=== PATIENT | male | born 1980 | race Caucasian/White ===

== ENCOUNTER 2024-01-06 10:31 | Outpatient (REF) | payer MEDICARE, MEDICAID, SELFPAY | END 2024-01-06 10:32 | disposition home or self-care (01) | LOC: HO.SH 10:31 | PROVIDERS: Visit Provider Physician Assistant | DX: Z01.118 Encounter for examination of ears and hearing with other abnormal findings (principal); H90.3 Sensorineural hearing loss, bilateral | CPT/HCPCS: 92553; 92555; 92567 ==

== ENCOUNTER 2024-02-11 14:34 | Outpatient (REF) | payer MEDICARE, MEDICAID, SELFPAY ==
--- NOTE | 2024-02-11 16:35 | MHC.AU.HA1 ---
Hearing Aid Evaluation Date of Visit: 02/11/24 Historical Information: Description of Hearing: Mild to severe sensorineural hearing loss, bilateral. Summary: Jose Alfredo is here with his sister. His wax was removed and medical clearance sent from ENT. Reviewed amplification options. Recommended mini BTE rechargeable with custom earmolds. Impressions taken without incidence Au. Hearing Aid Prescription: Based on the individual?s shared listening needs, communication environments, dexterity, desire for connectivity, and personal preferences, the following prescription for amplification has been made: Right ear: Make, Model, Color: Oticon Real 2 mini BTE R, chroma beige Battery Size: Rechargeable Type of Earmold/Dome/CShell/SlimTip: acrylic half shell Left ear: Left ear prescription to be same as Right Hearing Aid above: Make, Model, Color: Oticon Real 2 mini BTE R, chroma beige Battery Size: Rechargeable Type of Earmold/Dome/CShell/SlimTip: acrylic half shell Plan of Care: Patient wishes to purchase hearing aids as prescribed Action Taken/Action Needed: Earmold Impressions Taken Hearing Instrument Fitting to be scheduled when materials arrive Primary Diagnosis: H90.3 Bilateral Sensorineural Hearing Loss Signature: Provider: Heidy Mims, CCC-A
== END 2024-02-11 14:35 | disposition home or self-care (01) ==
LOC: HO.HAP 14:34
PROVIDERS: Visit Provider Otolaryngology
DX: Z46.1 Encounter for fitting and adjustment of hearing aid (principal); H90.3 Sensorineural hearing loss, bilateral
CPT/HCPCS: 92591; V5275

== ENCOUNTER 2024-03-08 11:05 | Outpatient (REF) | payer MEDICARE, MEDICAID, SELFPAY | END 2024-03-08 11:06 | disposition home or self-care (01) | LOC: HO.HAP 11:05 | PROVIDERS: PCP Physician Assistant; Visit Provider Otolaryngology | DX: Z46.1 Encounter for fitting and adjustment of hearing aid (principal); H90.3 Sensorineural hearing loss, bilateral | CPT/HCPCS: V5011; V5020; V5160; V5261; V5264 ==

== ENCOUNTER 2025-04-29 12:51 | Outpatient (REF) | payer MEDICARE, MEDICAID, SELFPAY ==
--- OUTSIDE RECORDS SUMMARY | 2025-04-29 13:27 | XMS_ITS ---
Author Name [facility] Organization Unknown History of Medication Use Medication Directions Dispensed Refills Start Date End Date Stat us sertraline (ZOLOFT) 100 MG tablet Take 2 tablets (200 mg total) by mouth every morning. ALONG WITH 50 MG TABLET FOR TOTAL DOSE OF 250 MG 09/29/2023 active sertraline (ZOLOFT) 50 MG tablet Take 1 tablet (50 mg total) by mouth every morning. ALONG WITH 200 MG FOR TOTAL DOSE OF 250 MG 08/19/2023 active Problems Problem Status Onset Date Problem Type Date of Resoluti on Source Symptomatic bradycardia active 2023-11-10 ProblemAct [facility] Syncope and collapse active 2023-11-10 ProblemAct [facility] Down syndrome active 2023-11-10 ProblemAct [facility] T Encounters Encounter Type Encounter Reason Primary Diagnosis Location Date Ambulatory Bradycardia, unspecified Bradycardia, unspecified [facility] 12/02/2023 Inpatient Other specified heart block Other specified heart block [facility] 11/10/2023 Care Team Organization Name Specialty Phone Email Start Date End Da te [facility] 11/10/2023 01/19/2025 [facility] CECILIA HUITRON Primary Care 11/10/202311/12 [facility]wite 11/10/2023 11/10/2023
--- NOTE | 2025-04-29 14:09 | MHC.AU.HA3 ---
Hearing Instrument Follow-Up- Binaural Date of Visit: 04/29/25 Right Ear: Make, Model, Color, Serial Number: Oticon Real 2 miniBTE-R SN: [id number] Color: Chroma Beige [facility] Repair Warranty: 03/13/2027 [facility] Loss and Damage Warranty: 03/13/2027 [facility] Service Plan: 03/08/2025 Battery Size: Rechargeable Earmold/Dome/CShell/SlimTip:John Acrylic Half Shell SN: [id number] Isabel: 05/27/2024 Left Ear: Make, Model, Color, Serial Number: Oticon Real 2 miniBTE-R SN: [id number] Color: Chroma Beige [facility] Repair Warranty: 03/13/2027 [facility] Loss and Damage Warranty: 03/13/2027 [facility] Service Plan: 03/08/2025 Battery Size: Rechargeable Earmold/Dome/CShell/SlimTip: John Acrylic Half Shell SN: [id number] Isabel: 05/27/2024 Follow-Up Summary: R FLOYD d/o with tube slipped out. Cleaned aid (1), cleaned earmold (1), [place]tubed [place]armold (1[place] [id number] 3 units. Listening check positive. Recommendations: Recommendations: Hearing instrument follow-up or maintenance as needed. Diagnosis Code(s): Primary Diagnosis: H90.3 Bilateral Sensorineural Hearing Loss Signature: Provider: Heidy Mims, CCC-A
== END 2025-04-29 12:52 | disposition home or self-care (01) ==
LOC: HO.HAP 12:51
PROVIDERS: Visit Provider Physician Assistant
DX: Z13.89 Encounter for screening for other disorder (principal)

== ENCOUNTER 2025-05-02 15:06 | Outpatient (REF) | payer MEDICARE, MEDICAID, SELFPAY ==
--- OUTSIDE RECORDS SUMMARY | 2025-05-02 15:31 | XMS_ITS | Clinical Summary ---
Author Organization [facility] Address [address] [place] [address] Care Team Providers Care Branch Lending Officer Name Role Phone Marcia Sánchez Primary Care Provider [phone] Allergies No known active allergies Medications sertraline (ZOLOFT) 100 MG tablet Take 2 tablets (200 mg total) by mouth every morning. ALONG WITH 50 MG TABLET FOR TOTAL DOSE OF 250 MG 09/29/2023 Active sertraline (ZOLOFT) 50 MG tablet Take 1 tablet (50 mg total) by mouth every morning. ALONG WITH 200 MG FOR TOTAL DOSE OF 250 MG 08/19/2023 Active metoCLOPRAMIDE (REGLAN) 5 MG tabletIndicatio ns:Sinus pause Take 1 tablet (5 mg total) by mouth every 4 (four) hours as needed for nausea. 42 tablet 11/12/2023 Active Active Problems Problem Noted Date Diagnosed Date Syncope and collapse 11/10/2023 Down syndrome 11/10/2023 Symptomatic bradycardia 11/10/2023 Social History Tobacco Use Types Packs/Day Years Used Date Smoking Tobacco: Never Assessed [facility] Utilities Answer Date Recorded In the past 12 months has e electric, gas, oil, or water company threatened to shut off services in your home? No 11/12/2023 Overall Financial Resource Strain (CARDIA) Answe r Date Recorded How hard is it for you to pa y for the very basics like food, housing, medical care, and heating? Not hard at all 11/12/2023 Hunger Vital Sign Answer Date Recorded Within the past 12 months, y ou worried that your food would run out before you got the money to buy more. Never true 11/12/19 24 Within the past 12 months, t he food you bought just didn't last and you didn't have money to get more. Never true 11/12/2023 PRAPARE - Transportation Answer Date Re corded In the past 12 months, has l ack of transportation kept you from medical appointments or from getting medications? No 11/03 In the past 12 months, has l ack of transportation kept you from meetings, work, or from getting things needed for daily living? No 11/12/2023 Housing Stability Vital Sign Answer Kashif e Recorded In the last 12 months, was t here a time when you were not able to pay the mortgage or rent on time? No 11/12/2023 [address] of Places Lived in the Last Year Not on f ile 11/12/2023 In the last 12 months, was t here a time when you did not have a steady place to sleep or slept in a senior care (including now)? No 11/12/2023 Sex and Gender Information Value Date Recorded Sex Assigned at Male 11/10/2023 3:35 AM EST Legal Sex Male 12:05 AM EST Gender Identity Male 11/10/2023 3:35 AM EST Sexual Orientation Heterosexual (straight) 11/10 3:35 AM EST Last Filed Vital Signs Vital Sign Reading Time Taken Comments Blood Pressure 119/71 11/12/2023 7:40 AM EST Pulse 76 11/12/2023 7:40 AM EST Temperature 36.3 C (97.3 F) 11/12/2023 7:40 AM EST Respiratory Rate 18 11/12/2023 7:40 AM EST Oxygen Saturation 98% 11/12/2023 7:40 AM EST Inhaled Oxygen Concentration - - Weight - - Height - - Body Mass Index - - Plan of Treatment Health Maintenance Due Date Last Done Comments Hepatitis C Virus Screening 1982 HIV Screening 1995 DTaP/Tdap/Td Vaccines (1 - Tdap) 2001 Hepatitis B Vaccines (1 of 3 - 19+ 3-dose series) 2001 COVID-19 Vaccine (2023-2 5 season) 2024 Influenza Vaccine 06/03/2025 HPV Vaccines Aged Out No longer eligi ble based on patient's age to complete this topic Pneumococcal Vaccine: Pediat roz (0-5 Years) and At-Risk Patients (6 to 49 Years) Aged Out No longer eligible b ased on patient's age to complete this topic Medical Devices Implanted Type Area Ballet Company Member Device Identifier Shelf Expiration Date Model / Serial / Lot [id number] Lead Pacing 53cm Ecrdl Bipolar Actfx Promri Solia S Strd - [id number] Implanted:Qty : 1 on 11/11/2023 by Maged Reilly MD at [facility] Lead Left: Chest [employer] [id number] 09/02/2025 [id number] / [id number] / [id number] Lead Pacing 45cm Bipolar Actfx Solia S Strd Elut - [id number] Implanted:Qty : 1 on 11/11/2023 by Maged Reilly MD at [facility] Lead Left: Chest [employer] [id number] 10/02/2025 [id number] / [id number] / [id number] Pacemaker Cardiac Edora [address]-T - [id number] Implanted:Qty : 1 on 11/11/2023 by Maged Reilly MD at [facility] Pacemaker Left: Chest [employer] [id number] 04/02/2025 [id number] / [id number] / Insurance MEDICARE PART A & B [facility] MEDICARE PART A & B [facility] Advance Directives * Full Code (Latest Code Status on File) Date Activated Date Inactivated Comments 11/11/2023 3:25 PM * Full Code Date Activated Date Inactivated Comments 11/10/2023 4:43 AM 11/11/2023 3:25 PM Care Teams Branch Lending Officer Relationship Specialty Start Date End Date Marcia Sánchez [address] [place] [address] PCP - General 11/12/23
--- OUTSIDE RECORDS SUMMARY | 2025-05-02 15:31 | XMS_ITS ---
Author Name [facility] Organization Unknown History of Medication [...] Location Date Ambulatory Bradycardia, unspecified Bradycardia, unspecified [employer] 12/02/2023 Inpatient Other specified heart block Other specified heart block [employer] 11/10/2023 Care Team Organization Name Specialty Phone Email Start Date End Da te [employer] 11/10/2023 01/19/2025 [employer] CECILIA HUITRON Primary Care 11/10/202311/12 [employer] 11/10/2023 11/10/2023
== END 2025-05-02 15:07 | disposition home or self-care (01) ==
LOC: HO.HAP 15:06
PROVIDERS: Visit Provider Physician Assistant
DX: Z46.1 Encounter for fitting and adjustment of hearing aid (principal); H90.3 Sensorineural hearing loss, bilateral
CPT/HCPCS: 92592; 99499